=== PATIENT | female | born 1980 | race Hispanic/Latino ===

== ENCOUNTER → 2018-03-30 15:41 | Outpatient (CLI) | payer OTHER, SELFPAY ==
--- NOTE | 2018-03-30 | DI.US.S_ITS ---
PROCEDURE: US PELVIC COMPLETE INDICATIONS: PELVIC PAIN/OVARIAN CYST TECHNIQUE: Real-time scanning was performed of the pelvic organs, with image documentation. Additional endovaginal scanning was necessary due to incomplete visualization of the adnexal and endometrial structures by transabdominal scanning. COMPARISON: [facility], US, PELVIC COMPLETE, 05/22/2017, 7:29. [facility], CT, ABDOMEN/PELVIS WITH CONTRAST, 06/09/2017, 11:14. FINDINGS: Transabdominal scanning: Limited scanning through the kidneys shows no hydronephrosis. No pathologic free abdominal or pelvic fluid. Endovaginal scanning: Uterus: Uterus is normal in size at 9.7 x 3.5 x 4.3 cm. The endometrium measures 6.0 mm in combined thickness. Mildly complex fluid within the lower uterine segment and the cervix. Ovaries: Right ovary measures 2.8 x 2.3 x 3.5 cm and the left ovary measures 2.0 x 2.7 x 2.4 cm. Dominant right follicular cyst measuring 19 mm. 14 mm angiomyolipoma again seen involving the right kidney. IMPRESSION: 1. Mildly complex fluid within the lower uterine segment and cervix. Recommend short-term followup pelvic ultrasound in 6 weeks to assess for temporal resolution. Dictated by: Jairon DYER Interpreted: Tawnya Montelongo MD on 03/30/2018 at 16:48 Approved by: Tawnya Montelongo MD, PhD on 03/30/2018 at 17:24
== END ==
PROVIDERS: PCP Family Medicine; Visit Provider Nurse Practitioner Family
DX: R10.2 Pelvic and perineal pain (principal); N83.01 Follicular cyst of right ovary; D17.71 Benign lipomatous neoplasm of kidney
CPT/HCPCS: 76830; 76856

== ENCOUNTER 2018-06-01 11:59 | Emergency (ER) | payer OTHER, SELFPAY ==
--- NOTE | 2018-06-01 12:04 | ED.ABDPAIN ---
HPI - Abdominal Pain <ALVARO Beckford - Last Filed: 06/01/18 21:25> General Chief Complaint: Abdominal Pain Stated Complaint: thinks ruptured appendix Time Seen by Provider: 06/01/18 12:04 Source: patient Mode of arrival: ambulatory Limitations: no limitations History of Present Illness HPI narrative: 38-year-old healthy female that is a nonsmoker here for complaint of pain into her right lower quadrant over the past couple of days. She reports increased pain with motion. She has had some nausea and no vomiting. She denies any urinary symptoms. Last bowel movement was yesterday. She reports having a decreased appetite today. Last p.o. intake was yesterday. She denies any fevers although she does state she has had some chills. She denies any trauma to the abdomen. She denies any vaginal discharge or bleeding. She does have a history of having ovarian cyst MD complaint: abdominal pain Related Data Home Medications Medication Instructions Recorded Confirmed ibuprofen [Advil] 400 mg PO QID PRN 06/01/18 06/01/18 Allergies Allergy/AdvReac Type Severity Reaction Status Date / Time iodine [IODINE] Allergy Intermediate CHEST Verified 06/01/18 12:16 TIGHTNESS, HIVES (IV CONTRAST) levofloxacin [LEVOFLOXACIN] Allergy Unknown Joint Pain Verified 06/01/18 12:16 Review of Systems <ALVARO Beckford - Last Filed: 06/01/18 21:25> Constitutional Reports chills, Denies fever(s), Denies lethargy and Denies weakness Eyes Denies change in vision, Denies eye discharge, Denies irritation and Denies loss of vision ENT Ears, Nose, Mouth, and Throat: Denies change in voice, Denies neck pain and Denies sore throat Cardiovascular Denies chest pain, Denies irregular heart rhythm, Denies lightheadedness, Denies palpitations, Denies dyspnea, Denies dyspnea on exertion and Denies orthopnea Respiratory Denies cough, Denies dyspnea, Denies dyspnea on exertion and Denies wheezing Gastrointestinal Gastrointestinal: Reports abdominal pain Genitourinary Denies hematuria, Denies flank pain, Denies urinary incontinence and Denies urinary urgency Musculoskeletal Denies neck pain Integumentary/Breasts Denies pruritus, Denies erythema, Denies rash and Denies wounds Neurologic Denies confusion, Denies loss of vision and Denies weakness Psychiatric Denies anxiety, Denies confusion, Denies depression, Denies homicidal ideation and Denies suicidal ideation Endocrine Denies palpitations Hematologic/Lymphatic Denies easy bruising Allergic/Immunologic Denies wheezing Exam <ALVARO Beckford - Last Filed: 06/01/18 21:25> Initial Vital Signs Initial Vital Signs: Vital Signs Temperature 98.2 F 06/01/18 12:09 Pulse Rate 72 06/01/18 12:09 Respiratory Rate 18 06/01/18 12:09 Blood Pressure 127/73 06/01/18 12:09 Pulse Oximetry 98 06/01/18 12:09 Const General: cooperative and well developed Nutritional Appearance: well nourished Orientation: alert, awake, oriented x3 and not confused HENCT Mouth: oral mucosae normal and moist mucous membranes Eyes Conjunctivae: conjunctivae normal Sclera: sclerae normal Pupils: PERRL EOM: EOM intact bilaterally Resp Effort & Inspection: normal respiratory effort, able to speak in complete sentences, no respiratory distress and no use of accessory muscles Auscultation: clear to auscultation bilaterally, no rales, no rhonchi and no wheezes Cardio Rate: regular rate Rhythm: regular rhythm Heart Sounds: no click, no gallops, no murmurs and no rubs GI Inspection: non-distended Palpation: soft, no hepatosplenomegaly, No guarding, No pulsatile mass and tender (Tenderness right lower quadrant) Auscultation: normal bowel sounds General: No CVA tenderness Skin General: no rashes or lesions noted, No jaundice and No petechiae Neuro General: alert, oriented x3, gait normal and no focal motor deficits Speech: speech normal <Ran Packer DO - Last Filed: 06/05/18 08:46> Initial Vital Signs Initial Vital Signs: Vital Signs Temperature 98.2 F 06/01/18 12:09 Pulse Rate 72 06/01/18 12:09 Respiratory Rate 18 06/01/18 12:09 Blood Pressure 127/73 06/01/18 12:09 Pulse Oximetry 98 06/01/18 12:09 Course <ALVARO Beckford - Last Filed: 06/01/18 21:25> Orders Ordered: Discontinued Medications Sodium Chloride (Normal Saline 0.9%) 1,000 mls @ 1,000 mls/hr IV BOLUS ONE Stop: 06/01/18 13:15 Last Admin: 06/01/18 12:39 Dose: Not Given Vital Signs - 8 hr 06/01/18 14:26 06/01/18 15:31 Pulse Rate 67 65 Respiratory Rate 23 16 Blood Pressure 102/70 Blood Pressure [Left Arm] 103/60 Pulse Oximetry 98 99 <Ran Packer DO - Last Filed: 06/05/18 08:46> Orders Ordered: Discontinued Medications Sodium Chloride (Normal Saline 0.9%) 1,000 mls @ 1,000 mls/hr IV BOLUS ONE Stop: 06/01/18 13:15 Last Admin: 06/01/18 12:39 Dose: Not Given Vital Signs - 8 hr 06/01/18 14:26 06/01/18 15:31 Pulse Rate 67 65 Respiratory Rate 23 16 Blood Pressure 102/70 Blood Pressure [Left Arm] 103/60 Pulse Oximetry 98 99 MDM - Abdominal Pain <ALVARO Beckford - Last Filed: 06/01/18 21:25> Lab Data Result diagrams: 06/01/18 12:35 06/01/18 12:35 Lab Results 06/01/18 06/01/18 Range/Units 12:35 12:35 WBC 3.3 L (4.5-11.0) X10^3/uL RBC 4.56 (4.0-5.2) X10^6/uL Hgb 15.2 (12.0-16.0) g/dL Hct 44.2 (36-46) % MCV 97.0 (80-100) fL MCH 33.3 (26-34) PG MCHC 34.4 (30-36) % RDW 12.4 (11.6-14.8) % Plt Count 193 (150-400) X10^3/uL Neut % (Auto) 41.7 L (50-75) % Lymph % (Auto) 32.3 (25-40) % Motley % (Auto) 23.9 H (3-14) % Eos % (Auto) 1.4 L (2-4) % Baso % (Auto) 0.7 (0-2) % Neut # (Auto) 1400 L (6426-4468) /uL Sodium 142 (137-145) mmol/L Potassium 4.8 (3.4-5.1) mmol/L Chloride 107 (98-107) mmol/L Carbon Dioxide 25 (22-32) mmol/L BUN 11 (7-17) mg/dL Creatinine 0.60 (0.52-1.04) mg/dL Estimated GFR > 60.0 (>60) mL/min BUN/Creatinine Ratio 18.3 (6-22) Glucose 104 H (70-100) mg/dL Calcium 9.1 (8.4-10.2) mg/dL Total Bilirubin 0.8 (0.2-1.3) mg/dL AST 41 H (14-36) IU/L ALT 20 (9-52) IU/L Alkaline Phosphatase 51 (38-126) U/L Total Protein 7.7 (6.3-8.2) g/dL Albumin 4.3 (3.5-5.0) g/dL Globulin 3.4 (1.7-4.1) g/dL Albumin/Globulin Ratio 1.3 (1.0-2.8) Lipase 56 (23-300) U/L Point of care testing: Point of Care Testing Test Results Negative Urine Dip Bedside Urine Glucose Negative Bedside Urine Bilirubin - Negative Bedside Urine Ketone - Negative Urine Specific [place] 1.010 Bedside Urine Occult Blood - Negative Bedside Urine pH 6.0 Bedside Urine Protein - Negative Bedside Urine Urobilinogen - Negative Bedside Urine Nitrite - Negative Bedside Urine Leukocytes - Negative Esterase Imaging Data pelvic us: Radiologist's impression: [address] [place] [id number] Ultrasound Report Signed Patient: Lavell Deleon BMR#: [id number] : 1980Acct:[id number] Age/Sex: 38 / FDate of Service: 06/01/18 Loc: ED Accession Number: [id number] Procedure: US pelvic complete Ordering Provider: Thomas Daniel PROCEDURE: US PELVIC COMPLETE INDICATIONS: Possible fluid within the endometrium. TECHNIQUE: Real-time scanning was performed of the pelvic organs, with image documentation. Additional endovaginal scanning was necessary due to incomplete visualization of the adnexal and endometrial structures by transabdominal scanning. COMPARISON: [facility], CT, CT ABDOMEN PELVIS WO CON, 06/01/2018, 12:43. [facility], US, US PELVIC COMPLETE, 03/30/2018, 16:08. FINDINGS: Transabdominal scanning: Limited scanning through the kidneys shows no hydronephrosis. Incidental note is made of an echogenic focus within the right kidney, measuring up to 1.4 cm in diameter. No loculated fluid collections are evident. A small amount of free fluid is seen within the pelvis. Endovaginal scanning: Uterus: Uterus is normal in size at 6 point by 4.3 x 5.3 cm. The endometrium measures 9 mm in combined thickness. No focal myometrial lesions are identified. No significant fluid is seen within the endometrial cavity. The cervix is unremarkable with the exception of nabothian cysts. Ovaries: The right ovary measures 3.7 x 2.7 x 2.5 cm with a solid hypervascular structure measuring up to 2.1 cm. The left ovary measures 2.7 x 1.7 x 1.4 cm and is normal in size without cystic or solid abnormality. Normal follicles are identified on both ovaries. IMPRESSION: 1. Unremarkable uterus. No myometrial lesions or fluid within the endometrium. Low attenuation structure within the lower endometrial cavity is felt to represent a nabothian cyst. 2. Hypervascular solid nodule within the right ovary is of doubtful significance. A followup ultrasound of the pelvis in 2-3 months is recommended. 3. Angiomyolipoma of the right kidney. Dictated by: Husam Gomez M.D. on 06/01/2018 at 13:34 Approved by: Husam Gomez M.D. on 06/01/2018 at 13:39 CT scan - abdomen: Radiologist's impression: [place] [address] CT Scan Report Signed Patient: Lavell Deleon BMR#: [id number] : 1980Acct:[id number] Age/Sex: 38 / FDate of Service: 06/01/18 Loc: ED Accession Number: [id number] Procedure: CT abdomen pelvis wo con Ordering Provider: Thomas Daniel PROCEDURE: CT ABDOMEN PELVIS WO CON INDICATIONS: Right lower quadrant pain last couple of days TECHNIQUE: Noncontrast 5 mm thick sections acquired from the diaphragms to the symphysis. 5 mm coronal and sagittal reformats were then performed. For radiation dose reduction, the following was used: automated exposure control, adjustment of mA and/or kV according to patient size. COMPARISON: [facility], CT, ABDOMEN/PELVIS WITH CONTRAST, 06/09/2017, 11:14. [facility], US, US PELVIC COMPLETE, 03/30/2018, 16:08. FINDINGS: Image quality: Excellent. ABDOMEN: Lung bases: Lung bases are clear. Heart size is normal. Solid organs: Liver is normal in size. Gallbladder contracted otherwise unremarkable. Pancreas is normal in contours. Spleen is normal in size. No adrenal nodules. Kidneys are normal in size, without hydronephrosis or nephrolithiasis. There is a subcentimeter fat attenuation focus within the right kidney on image 27 which could represent a small angiomyolipoma however too small to characterize definitively. This appears unchanged since prior study. Peritoneum and bowel: Unenhanced bowel loops demonstrate normal wall thickness and caliber. No free fluid or air. The appendix is not clearly identified however no suspicious pericecal inflammatory changes are identified Rectum is grossly unremarkable Nodes and vessels: No retroperitoneal or mesenteric adenopathy by size criteria. Aorta and inferior vena cava are normal in caliber. Miscellaneous: No ventral hernias. PELVIS: Genitourinary: Bladder wall thickness is normal. Heterogeneous appearance of the uterus raising the possibility of fibroids Miscellaneous: No inguinal hernias or adenopathy. Bones: No suspicious bony lesions. No vertebral body compression fractures. IMPRESSION: No acute process identified. The appendix is not clearly seen however no suspicious right lower quadrant inflammatory changes. Heterogeneous appearance of the lower uterine segment raising the possibility of intraluminal fluid or blood products. This can be further assessed with pelvic ultrasound if clinically necessary. Dictated by: Wilmer Stratton M.D. on 06/01/2018 at 13:19 Approved by: Wilmer Stratton M.D. on 06/01/2018 at 13:25 [facility] Narrative Medical decision making narrative: CBC and Chem panel were obtained were unremarkable. Lipase was negative. Urinalysis was negative for urinary tract infection and . CT of the abdomen was obtained without IV contrast as patient is allergic to IV contrast therefore pending was not clearly seen but no suspicious inflammatory changes were seen. CT showed heterogenous appearance to the lower uterus concerning for possibility of fluid or blood. Therefore pelvic ultrasound was obtained and shows unremarkable uterus. A 2.1 solid hypervascular structure is seen to the right ovary. Incidental finding of a angiomyolipoma is seen to the right kidney. No acute cause of her abdominal pain is seen in today as do not believe that her right ovarian cyst is causing her discomfort today. Suspect that this is abdominal wall pain. Discussed case with her primary care provider will follow-up with her in the next couple days for re-evaluation. [id number] ibuprofen as needed for any discomfort. For any worsening symptoms return to the emergency room. <Ranlisa Packer, DO - Last Filed: 06/05/18 08:46> Lab Data Lab Results 06/01/18 06/01/18 Range/Units 12:35 12:35 WBC 3.3 L (4.5-11.0) X10^3/uL RBC 4.56 (4.0-5.2) X10^6/uL Hgb 15.2 (12.0-16.0) g/dL Hct 44.2 (36-46) % MCV 97.0 (80-100) fL MCH 33.3 (26-34) PG MCHC 34.4 (30-36) % RDW 12.4 (11.6-14.8) % Plt Count 193 (150-400) X10^3/uL Neut % (Auto) 41.7 L (50-75) % Lymph % (Auto) 32.3 (25-40) % Motley % (Auto) 23.9 H (3-14) % Eos % (Auto) 1.4 L (2-4) % Baso % (Auto) 0.7 (0-2) % Neut # (Auto) 1400 L (5531-7334) /uL Sodium 142 (137-145) mmol/L Potassium 4.8 (3.4-5.1) mmol/L Chloride 107 (98-107) mmol/L Carbon Dioxide 25 (22-32) mmol/L BUN 11 (7-17) mg/dL Creatinine 0.60 (0.52-1.04) mg/dL Estimated GFR > 60.0 (>60) mL/min BUN/Creatinine Ratio 18.3 (6-22) Glucose 104 H (70-100) mg/dL Calcium 9.1 (8.4-10.2) mg/dL Total Bilirubin 0.8 (0.2-1.3) mg/dL AST 41 H (14-36) IU/L ALT 20 (9-52) IU/L Alkaline Phosphatase 51 (38-126) U/L Total Protein 7.7 (6.3-8.2) g/dL Albumin 4.3 (3.5-5.0) g/dL Globulin 3.4 (1.7-4.1) g/dL Albumin/Globulin Ratio 1.3 (1.0-2.8) Lipase 56 (23-300) U/L Point of care testing: Point of Care Testing Test Results Negative Urine Dip Bedside Urine Glucose Negative Bedside Urine Bilirubin - Negative Bedside Urine Ketone - Negative Urine Specific [place] 1.010 Bedside Urine Occult Blood - Negative Bedside Urine pH 6.0 Bedside Urine Protein - Negative Bedside Urine Urobilinogen - Negative Bedside Urine Nitrite - Negative Bedside Urine Leukocytes - Negative Esterase Discharge Plan Departure Patient Disposition: Home Clinical Impression: Abdominal pain Discharge Date/Time: 06/01/18 15:33 Interventions: ED Discharge Assessment Last Done: 06/01/18 15:31 Instructions: DI for Abdominal Pain-Adult Activity Restrictions/Additional Instructions: Laboratory results today were unremarkable. CT of the abdomen today was unremarkable. Ultrasound shows again 2 cm cyst to the right ovary. Pain in today presents as abdominal wall pain. Rest area. Use [id number] ibuprofen as needed for any discomfort. Follow up with primary care provider the next few days for re-evaluation. For any worsening symptoms return to the emergency room. Prescriptions: No Action ibuprofen [Advil] 200 mg Tablet 400 mg PO QID PRN (Reason: Pain (Scale Score 1-3)) RF: 0 Referrals: Ankur Mayberry MD [Primary Care Provider] - <Ran Packer DO - Last Filed: 06/05/18 08:46> [facility] Reynaldo Attestation: I was immediately available in the department for consultation. Documentation has been reviewed. I agree with assessment and plan.
[2018-06-01 12:09] VITALS: BP 127/73; PULSE 72; RESP 18; TEMP 36.8; O2SAT 98
[2018-06-01 12:45] LABS: Add Manual Diff / Slide Review NO; Basophils Percent Auto 0.7 % (0-2); Eosinophils Percent Auto 1.4 % (2-4); Hematocrit 44.2 % (36-46); Hemoglobin 15.2 g/dL (12.0-16.0); Lymphocytes Percent Auto 32.3 % (25-40); Mean Corpuscular HGB Conc 34.4 % (30-36); Mean Corpuscular Hemoglobin 33.3 PG (26-34); Monocytes Percent Auto 23.9 % (3-14); Neutrophils Absolute Auto 1400 /uL (3000-5900); Neutrophils Percent Auto 41.7 % (50-75); Platelet Count 193 X10^3/uL (150-400); Red Blood Cell Count 4.56 X10^6/uL (4.0-5.2); Red Cell Distribution Width 12.4 % (11.6-14.8); White Blood Cell Count 3.3 X10^3/uL (4.5-11.0)
[2018-06-01 12:59] LABS: Alanine Aminotransferase 20 IU/L (9-52); Albumin 4.3 g/dL (3.5-5.0); Albumin Globulin Ratio 1.3 (1.0-2.8); Alkaline Phosphatase 51 U/L (38-126); Aspartate Aminotransferase 41 IU/L (14-36); BUN Creatinine Ratio 18.3 (6-22); Bilirubin Total 0.8 mg/dL (0.2-1.3); Blood Urea Nitrogen 11 mg/dL (7-17); Calcium 9.1 mg/dL (8.4-10.2); Carbon Dioxide 25 mmol/L (22-32); Chloride 107 mmol/L (98-107); Estimated Glomerular Filt Rate > 60.0 mL/min (>60); Globulin 3.4 g/dL (1.7-4.1); Glucose 104 mg/dL (70-100); Lipase 56 U/L (23-300); Sodium 142 mmol/L (137-145); Total Protein 7.7 g/dL (6.3-8.2)
--- NOTE | 2018-06-01 13:06 | DI.CT.S_ITS ---
PROCEDURE: CT ABDOMEN PELVIS WO CON INDICATIONS: Right lower quadrant pain last couple of days TECHNIQUE: Noncontrast 5 mm thick sections acquired from the diaphragms to the symphysis. 5 mm coronal and sagittal reformats were then performed. For radiation dose reduction, the following was used: automated exposure control, adjustment of mA and/or kV according to patient size. COMPARISON: [facility], CT, ABDOMEN/PELVIS WITH CONTRAST, 06/09/2017, 11:14. [facility], US, US PELVIC COMPLETE, 03/30/2018, 16:08. FINDINGS: Image quality: Excellent. ABDOMEN: Lung bases: Lung bases are clear. Heart size is normal. Solid organs: Liver is normal in size. Gallbladder contracted otherwise unremarkable. Pancreas is normal in contours. Spleen is normal in size. No adrenal nodules. Kidneys are normal in size, without hydronephrosis or nephrolithiasis. There is a subcentimeter fat attenuation focus within the right kidney on image 27 which could represent a small angiomyolipoma however too small to characterize definitively. This appears unchanged since prior study. Peritoneum and bowel: Unenhanced bowel loops demonstrate normal wall thickness and caliber. No free fluid or air. The appendix is not clearly identified however no suspicious pericecal inflammatory changes are identified Rectum is grossly unremarkable Nodes and vessels: No retroperitoneal or mesenteric adenopathy by size criteria. Aorta and inferior vena cava are normal in caliber. Miscellaneous: No ventral hernias. PELVIS: Genitourinary: Bladder wall thickness is normal. Heterogeneous appearance of the uterus raising the possibility of fibroids Miscellaneous: No inguinal hernias or adenopathy. Bones: No suspicious bony lesions. No vertebral body compression fractures. IMPRESSION: No acute process identified. The appendix is not clearly seen however no suspicious right lower quadrant inflammatory changes. Heterogeneous appearance of the lower uterine segment raising the possibility of intraluminal fluid or blood products. This can be further assessed with pelvic ultrasound if clinically necessary. Dictated by: Wilmer Stratton M.D. on 06/01/2018 at 13:19 Approved by: Wilmer Stratton M.D. on 06/01/2018 at 13:25
[2018-06-01 13:07] LABS: HEMOLYSIS 103 (0-50)
[2018-06-01 13:08] LABS: Potassium 4.8 mmol/L (3.4-5.1)
--- NOTE | 2018-06-01 13:27 | DI.US.S_ITS ---
PROCEDURE: US PELVIC COMPLETE INDICATIONS: Possible fluid within the endometrium. TECHNIQUE: Real-time scanning was performed of the pelvic organs, with image documentation. Additional endovaginal scanning was necessary due to incomplete visualization of the adnexal and endometrial structures by transabdominal scanning. COMPARISON: [facility], CT, CT ABDOMEN PELVIS WO CON, 06/01/2018, 12:43. [facility], US, US PELVIC COMPLETE, 03/30/2018, 16:08. FINDINGS: Transabdominal scanning: Limited scanning through the kidneys shows no hydronephrosis. Incidental note is made of an echogenic focus within the right kidney, measuring up to 1.4 cm in diameter. No loculated fluid collections are evident. A small amount of free fluid is seen within the pelvis. Endovaginal scanning: Uterus: Uterus is normal in size at 6 point by 4.3 x 5.3 cm. The endometrium measures 9 mm in combined thickness. No focal myometrial lesions are identified. No significant fluid is seen within the endometrial cavity. The cervix is unremarkable with the exception of nabothian cysts. Ovaries: The right ovary measures 3.7 x 2.7 x 2.5 cm with a solid hypervascular structure measuring up to 2.1 cm. The left ovary measures 2.7 x 1.7 x 1.4 cm and is normal in size without cystic or solid abnormality. Normal follicles are identified on both ovaries. IMPRESSION: 1. Unremarkable uterus. No myometrial lesions or fluid within the endometrium. Low attenuation structure within the lower endometrial cavity is felt to represent a nabothian cyst. 2. Hypervascular solid nodule within the right ovary is of doubtful significance. A followup ultrasound of the pelvis in 2-3 months is recommended. 3. Angiomyolipoma of the right kidney. Dictated by: Husam Gomez M.D. on 06/01/2018 at 13:34 Approved by: Husam Gomez M.D. on 06/01/2018 at 13:39
[2018-06-01 14:26] VITALS: BP 103/60; PULSE 67; RESP 23; O2SAT 98
[2018-06-01 15:31] VITALS: BP 102/70; PULSE 65; RESP 16; O2SAT 99
== END 2018-06-01 15:33 | disposition home or self-care (01) ==
PROVIDERS: Emergency Provider Nurse Practitioner Family; PCP Family Medicine
DX: R10.9 Unspecified abdominal pain (principal)
CPT/HCPCS: 36591; 74176; 76830; 76856; 80053; 81003; 81025; 83690; 85025; 99282; 99284